=== PATIENT | male | born 1965 | race Caucasian/White ===

== ENCOUNTER 2021-04-27 17:14 | Inpatient (IN) | payer OTHER ==
[~2021-04-27] VITALS: Ht 172.7 cm; Wt 103.0 kg
--- NOTE | 2021-04-27 17:28 | NUR ---
PT BIB PD FOR MEDICAL CLEARANCE PRIOR TO BOOKING. PT PRESENTS W/ R UPPER THIGH ABSCESS FROM HEROIN USE. 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 DENIES ANY OTHER COMPLAINT FLOUR BLENDER. AWAITING MD MILLS.
--- NOTE | 2021-04-27 18:34 | NUR ---
JUAN DANIEL SERRANO AT BEDSIDE FOR EVAL.
[2021-04-27] MEDS ORDERED: LIDOCAINE MPF 1%-EPI 1:200,000 30 ML VIAL IJ ONE (18:51)
--- NOTE | 2021-04-27 18:53 | NUR ---
LEAVE SPECIALIST AT BEDSIDE FOR BLOOD DRAW.
[2021-04-27] MEDS ORDERED: CLINDAMYCIN 600 MG in IV D5W 100 ML IV ONE (19:00)
[2021-04-27] MEDS ORDERED: VANCOMYCIN 1 GM in IV D5W 250 ML IV ONE (19:00)
[2021-04-27] MEDS ORDERED: ACETAMINOPHEN ES 500 MG TABLET PO ONE (19:00)
[2021-04-27 19:03] LABS: BASOPHILS # (AUTO) 0.1 K/uL (0.0-0.2); BASOPHILS % (AUTO) 0.5 % (0.0-2.0); HEMATOCRIT 45 % (39-51); HEMOGLOBIN 14.6 g/dL (13.5-17.5); LYMPHOCYTES # (AUTO) 0.9 K/uL (0.8-4.8); LYMPHOCYTES % (AUTO) 5.3 % (20.0-44.0); MEAN CORPUSCULAR HGB CONC 33 g/dl (31.0-36.0); MEAN CORPUSCULAR VOLUME 88 fL (80-96); MONOCYTES # (AUTO) 1.6 K/uL (0.1-1.30); MONOCYTES % (AUTO) 9.9 % (2.0-12.0); NEUTROPHILS # (AUTO) 13.5 K/uL (1.8-8.9); NEUTROPHILS % (AUTO) 83.3 % (43.0-81.0); PLATELET COUNT (AUTO) 365 K/uL (150-450); RED BLOOD CELL COUNT(AUTO) 5.08 MIL/uL (4.5-6.0); WHITE BLOOD COUNT (AUTO) 16.2 K/uL (4.3-11.0)
[2021-04-27 19:06] LABS: CALCIUM, SERUM 8.7 mg/dL (8.5-10.1); CREATININE 1.2 mg/dL (0.6-1.3); POTASSIUM 4.1 mmol/L (3.5-5.1)
--- NOTE | 2021-04-27 19:10 | NUR ---
REPORT RECEIVED FROM MARIA ESTHER VILLA, PATIENT IN BED, MD AT BEDSIDE FOR INCISION AND DRAINAGE. WILL CONT TO MONITOR
[2021-04-27 19:11] LABS: ALBUMIN 2.3 g/dL (3.4-5.0); BILIRUBIN,DIRECT 0.2 mg/dL (0.0-0.2); BILIRUBIN,TOTAL 0.4 mg/dL (0.2-1.0); TOTAL PROTEIN, SERUM 7.5 g/dL (6.4-8.2)
--- NOTE | 2021-04-27 19:15 | NUR ---
JUAN DANIEL SERRANO AT BACK AT BEDSIDE FOR INCISION AND DRAINAGE.
--- NOTE | 2021-04-27 19:16 | NUR ---
ADAMID SWABBED, SENT TO LAB.
[2021-04-27] MEDS ORDERED: ACETAMINOPHEN ES 500 MG TABLET ONE (19:25)
--- NOTE | 2021-04-27 19:26 | NUR ---
REPORT GIVEN TO HEARING AID SPECIALIST NURSE ROXANE VILLA FOR ARIELLA.
--- NOTE | 2021-04-27 19:52 | NUR ---
[facility] CALLED LIFTS AND CRANES INSPECTOR PAGED.
[2021-04-27] MEDS ORDERED: IV NS 0.9% 1,000 ML BAG IV ONE (20:00)
--- NOTE | 2021-04-27 20:17 | NUR ---
HOSPITALIST SPEAKING WITH PROVIDER.
--- NOTE | 2021-04-27 22:28 | NUR ---
MS BED : 110
[2021-04-27] MEDS ORDERED: ACETAMINOPHEN 325 MG TABLET PO PRN (22:30)
[2021-04-27] MEDS ORDERED: MAG HYDROX/AL HYDROX/SIMETH 30 ML UDC PO PRN (22:30)
[2021-04-27] MEDS ORDERED: MAGNESIUM HYDROXIDE 30 ML UDC PO PRN (22:30)
--- NOTE | 2021-04-27 22:38 | NUR ---
CALLED FOR PCR SWAB
--- NOTE | 2021-04-27 23:16 | NUR ---
REPORT GIVEN ALLEN NUÑEZ FOR ARIELLA.
--- NOTE | 2021-04-27 23:28 | NUR ---
PT WAS TRANSFERRED TO 110
[2021-04-27 23:35] VITALS: BP 112/55
[2021-04-28] MEDS: ENOXAPARIN SODIUM 40 MG/0.4 ML DISP.SYRIN SQ SCH ×2 (00:10→22:10)
--- NOTE | 2021-04-28 01:04 | NUR ---
NGT REINSERTED TO LEFT NARE 16 ZIMBABWEAN AT 60 CM. PLACEMENT CONFIRMED WITH AUSCULTATION. NO GASTRIC CONTENTS CAME OUT. CXR ORDERED TO CONFIRM PLACEMENT. Addendum: 04/28/21 at 0107 by SAVANNAH ZENG RN NOTE ENTERED ON WRONG PATIENT
[2021-04-28 04:00] VITALS: BP 138/76
[2021-04-28] MEDS: ONDANSETRON HCL/PF 4 MG/2 ML VIAL IVP PRN ×3 (06:45→19:41)
[2021-04-28] MEDS: MORPHINE SULFATE INJ 2 MG/ML DISP.SYRIN IV PRN ×3 (06:46→17:00)
--- NOTE | 2021-04-28 07:17 | NUR ---
RN OPENING NOTE RECEIVED PATIENT RESTING IN BED. PATIENT IS A/O X3. PATIENT IS BREATHING EVENLY AND NONLABORED ON ROOM AIR. NO SIGNS OF DISTRESS NOTED. PATIENT DOES NOT COMPLAIN OF PAIN AT THIS TIME. PATIENT HAS IV ACCESS ON LAC # 20 GAUGE. PATIENT HAS WOUND DRESSING IN PLACE ON RIGHT THIGH. POLICE AT BEDSIDE. SAFETY MEASURES ARE IN PLACE, BED LOW LOCKED CALL LIGHT WITHIN REACH. WILL CONTINUE TO MONITOR
[2021-04-28] MEDS: VANCOMYCIN 1.5 GM in IV D5W 500 ML IV SCH (07:37)
[2021-04-28] MEDS: PANTOPRAZOLE 40 MG TABLET.DR PO SCH (07:37)
--- NOTE | 2021-04-28 08:38 | NUR ---
WOUND CARE CONSULT: REVIEWED CHART, NURSING DOCUMENTATION AND PHOTO WHICH INDICATES ABSCESS STATUS POST INCISION AND DRAINAGE TO RT THIGH, PRESENT ON ADMISSION. RECOMMENDATIONS MADE FOR WOUND CARE AND SKIN PROTECTION. DISCUSSED WITH NURSING STAFF. [employer] AT BEDSIDE. MD IN AGREEMENT WITH PLAN OF CARE.
--- NOTE | 2021-04-28 08:56 | NUR ---
RN NOTE PATIENT COMPLAINED OF WITHDRAW SYMPTOMS. NOTIFIED . ORDERED 1MG OF ATIVAN Q6HRS PRN IVP TRB. WILL CONTINUE TO MONITOR
[2021-04-28] MEDS ORDERED: LORAZEPAM INJ 2 MG/ML VIAL IV PRN (09:00)
--- NOTE | 2021-04-28 09:57 | NUR ---
RN NOTE RECEIVED CLARIFICATION FOR CT OF LOWER EXTREMITIES WITH CONTRAST PER TRB
--- NOTE | 2021-04-28 10:37 | NUR ---
RN NOTE PATIENT COMPLAINED OF FEELING SEVERE LOWER BACK PAIN AND NAUSEA. PATIENT SHOWS SIGNS OF RESTLESSNESS. VITALS TAKEN, ALL WNL. PRN PAIN MEDICATION AND NAUSEA MEDICATION GIVEN. WILL CONTINUE TO MONITOR
[2021-04-28] MEDS ORDERED: IV NS 0.9% 250 ML IV ONE (11:16)
[2021-04-28] MEDS ORDERED: IOHEXOL-300 100 ML VIAL IV ONE (11:16)
[2021-04-28] MEDS ORDERED: CT SWABBABLE VALVE TRANS SET 1 EA INFUS.SET MC ONE (11:16)
[2021-04-28 13:04] VITALS: BP 144/78
[2021-04-28 15:09] LABS: BASOPHILS % (AUTO) 0.3 % (0.0-2.0); EOSINOPHILS % (AUTO) 0.3 % (0.0-6.0); HEMATOCRIT 47 % (39-51); LYMPHOCYTES # (AUTO) 0.6 K/uL (0.8-4.8); LYMPHOCYTES % (AUTO) 4.6 % (20.0-44.0); MEAN CORPUSCULAR HGB CONC 32 g/dl (31.0-36.0); MEAN CORPUSCULAR VOLUME 90 fL (80-96); MONOCYTES # (AUTO) 0.9 K/uL (0.1-1.30); NEUTROPHILS # (AUTO) 11.5 K/uL (1.8-8.9); NEUTROPHILS % (AUTO) 87.8 % (43.0-81.0); PLATELET COUNT (AUTO) 305 K/uL (150-450); RED BLOOD CELL COUNT(AUTO) 5.18 MIL/uL (4.5-6.0); WHITE BLOOD COUNT (AUTO) 13.1 K/uL (4.3-11.0)
[2021-04-28 16:00] LABS: CALCIUM, SERUM 8.7 mg/dL (8.5-10.1); CREATININE 1.3 mg/dL (0.6-1.3); MAGNESIUM 1.9 mg/dL (1.8-2.4); POTASSIUM 4.2 mmol/L (3.5-5.1)
--- NOTE | 2021-04-28 17:00 | NUR ---
RN NOTE PATIENT COMPLAINED OF SEVERE PAIN 06/24. ASKED FOR PRN PAIN MEDICATION VITALS STABLE WILL GIVE MEDICATION ORDERED.
--- NOTE | 2021-04-28 18:20 | NUR ---
RN CLOSING NOTE PATIENT RESTING IN BED. PATIENT IS A/O X3. PATIENT IS BREATHING EVENLY AND NONLABORED ON ROOM AIR. NO SIGNS OF DISTRESS NOTED. PATIENT DOES NOT COMPLAIN OF PAIN AT THIS TIME. PATIENT HAS IV ACCESS ON LAC # 20 GAUGE. PATIENT HAS WOUND DRESSING IN PLACE ON RIGHT THIGH. WOUND DRESSING CHANGE PERFORMED DURING SHIFT. ALL MEDICATION GIVEN ORDERED. POLICE AT BEDSIDE. SAFETY MEASURES ARE IN PLACE, BED LOW LOCKED CALL LIGHT WITHIN REACH. WILL ENDORSE TO ONCOMING SHIFT
--- NOTE | 2021-04-28 19:46 | NUR ---
MS VILLA Notes Patient was last seen sleeping in bed, Patient's alert and oriented x3. Patient's on room air with no respiratory distress noted. Patient has a saline lock on his left AC G#20 which is intact, patent, and flushing well. Patient's in no acute distress at this time. Safety measures in place: Bed locked, side rails up x2, and call light within reach. Will continue to monitor the patient. Addendum: 04/29/21 at 0654 by ADE ALEGRE RN MS VILLA Opening Notes
[2021-04-28 21:00] VITALS: BP 153/84
[2021-04-29] MEDS: VANCOMYCIN 1.5 GM in IV D5W 500 ML IV SCH ×2 (01:52→21:00)
[2021-04-29] MEDS: MORPHINE SULFATE INJ 2 MG/ML DISP.SYRIN IV PRN ×4 (03:43→20:31)
--- NOTE | 2021-04-29 03:44 | NUR ---
MS RN Notes Patient c/o 7/10 pain in his back. Patient was given 1 mg of morphine intravenously. Will continue to monitor the patient.
[2021-04-29 05:37] VITALS: BP 98/68
[2021-04-29 06:47] LABS: BASOPHILS % (AUTO) 0.4 % (0.0-2.0); EOSINOPHILS % (AUTO) 0.4 % (0.0-6.0); HEMATOCRIT 51 % (39-51); HEMOGLOBIN 16.8 g/dL (13.5-17.5); LYMPHOCYTES % (AUTO) 8.8 % (20.0-44.0); MEAN CORPUSCULAR HGB CONC 33 g/dl (31.0-36.0); MEAN CORPUSCULAR VOLUME 88 fL (80-96); MONOCYTES # (AUTO) 1.3 K/uL (0.1-1.30); MONOCYTES % (AUTO) 11.8 % (2.0-12.0); NEUTROPHILS # (AUTO) 8.8 K/uL (1.8-8.9); NEUTROPHILS % (AUTO) 78.6 % (43.0-81.0); PLATELET COUNT (AUTO) 403 K/uL (150-450); RED BLOOD CELL COUNT(AUTO) 5.73 MIL/uL (4.5-6.0); WHITE BLOOD COUNT (AUTO) 11.2 K/uL (4.3-11.0)
--- NOTE | 2021-04-29 06:54 | NUR ---
MS RN Opening Notes Patient was last seen sleeping in bed. Patient's alert and oriented x3. Patient's on room air with no respiratory distress noted. Patient has a saline lock on his left AC G#20 which is intact, patent, and flushing well. Patient's in no acute distress at this time. Safety measures in place: Bed locked, side rails up x2, and call light within reach. Will endorse care to the day shift nurse.
--- NOTE | 2021-04-29 07:15 | NUR ---
RN NOTES PATIENT IN BED RESTING, EYES CLOSED, ABLE TO BE AWAKENED. A/O X4, ABLE TO MAKE NEEDS KNOWN. BREATHING EVEN AND UNLABORED ON ROOM AIR. IV LINE ON LAC #20 INTACT AND PATENT. PATIENT IN CUSTODY, 2 OFFICERS CURRENTLY AT BEDSIDE. SAFETY MEASURES IN PLACE. WILL CONTINUE TO MONITOR.
[2021-04-29 07:25] LABS: CALCIUM, SERUM 8.9 mg/dL (8.5-10.1); CREATININE 1.1 mg/dL (0.6-1.3); MAGNESIUM 2.2 mg/dL (1.8-2.4); PHOSPHORUS 3.4 mg/dL (2.5-4.9); POTASSIUM 4.3 mmol/L (3.5-5.1)
[2021-04-29] MEDS: PANTOPRAZOLE 40 MG TABLET.DR PO SCH (07:48)
--- NOTE | 2021-04-29 12:17 | NUR ---
RN NOTES PATIENT REQUESTED FOR PAIN MEDICATION FOR BACK PAIN RATED 10/10; MORPHINE 2MG IVP ADMINISTERED INDICATED. RESTING IN BED AT THIS TIME.
[2021-04-29 13:00] VITALS: BP 138/79
--- NOTE | 2021-04-29 14:50 | NUR ---
"Social Service consult: Social service consult requested for substance use including heroin. Patient is a 55-year-old, male. SW met with patient at his bedside in the med-surg unit. Patient was alert and oriented x4. Patient was resting. [employer] officers were at the bedside. Per chart, pt was brought in by [employer] for medical clearance prior to booking. Patient has a history of heroin use. Patient stated that he is currently homeless and will be D/C with [employer]. Patient stated that he has been living in his car for the last 7 months. Patient provided SW with contact information for his brother, Gallo, . SW asked the patient about his source of income and patient reported SANYA. Patient stated that he has a history of substance use which includes daily heroin, methamphetamine and alcohol use. Patient reported that he has been receiving medication-assisted treatment (Methadone) from [facility] [[address] [place] [address]; ] for his heroin use. Patient denied history of mental illness. Patient denied suicidal and homicidal ideation. Patient presented in the contemplation stage of change for his heroin use. Patient was receptive to receiving additional MAT resources. Patient's affect was reactive and his mood was euthymic. SW offered the patient MAT clinic referrals, homeless, and additional substance use resources. Patient accepted the resources and thanked SW. Patient signed the homeless waiver and SW filed waiver in the patient's chart. Patient will be discharged with [employer]. PLAN: Patient will be discharged with [employer]. No further SS intervention at this time, however, SW will remain available as needed. RESOURCES: [facility]: [address] [facility] [place] [address] [facility]: [address] [facility] [place] [address] [facility]: [id number] [place] [address] Year-round shelters: [facility] [address] [place] [address] ; [facility] [place] [address] [place] [address]; [place] [facility] [address] [facility] [address] SPA 4 | [facility] Provider: [facility] Address: [address], [address] # of Beds: 48 Population Served: [facility] Provider: [facility] Address: [address] [facility], [address] # of Beds: 73 Population Served: [facility] SPA 6 | [facility] Provider: [facility] Address: [address] [facility], [address] # of Beds: 63 Population Served: [facility] 3 | [facility] Provider: [facility] [place] Address: [address] [place] [address] # of Beds: 75 Population Served: [facility] 8 | [facility] Provider: [facility] [place] Address: [address] [place] [address] # of Beds: 80 Population Served: [facility] 1 | [facility] Provider: [facility] [place] Address: [address] [place] [address], [address] # of Beds: 85 Population Served: [facility] 2 | [facility] Provider: [facility] Address: Confidential (please call for location) # of Beds: 52 Population Served: [facility] 4 | [facility] Provider: [facility] Address: [address] [facility], [address] # of Beds: 49 Population Served: [facility] Provider: [facility] Address: [address] [facility], [address] # of Beds: 27 Population Served: [facility]: [facility]: [address] ; [facility] [address] [facility] ; [facility] [address] . Food Resources: [place] [facility] at [facility]- [address]. [place]; Meet Each Need with [facility] ([facility]) [address] [place]; [facility] [address] [facility]; [facility] 5[address] [facility]. Mental Health resources provided: [facility] [address] [place], [place] [address] ; [facility] [address] [facility] [address], [place], [place] [phone] ; [facility] [address] [facility] [place], [place] [id number] ; [facility] [address] [place], [place] [id number] Healthcare Clinics: [facility] [address] [facility], [address] [place]. [place] ; [facility] [address] [facility] [address] [place] [address]; [facility] [address] [facility]. [place] [address] [phone] Counseling--Outpatient [facility] [address] [facility], [place] [address] (Specializes in in-depth psychotherapy for emotional distress: anxiety, depression, interpersonal conflicts, life transitions, childhood abuse) PSYCHIATRIC OUTPATIENT SERVICES [facility] Partial Hospitalization and Intensive Outpatient Program (Managed Care and Hooper Only) [address] [facility]. [facility] [id number] [facility] Partial Hospitalization and Outpatient Program [address] [place] [address] [facility] Partial Hospitalization and Outpatient Program [address] [facility] [place], [place] [id number] [facility] [place] [facility] [address] [facility]. [address] [place], [place] [address] [facility] Partial Hospitalization and Outpatient Program [address] [place], [place] [phone] Substance use resources provided included: [facility] Substance Abuse Self-Helpline (SAS) ; [facility] [address] [place] [address] ; [facility] [address] [facility] [address] ; [facility] [address] [address] ; [facility] [address] [facility] [address] ; [facility] [address] [facility] [phone] ; [facility]; [facility] [place]; [place]; Alcoholics Anonymous -[facility]"
--- NOTE | 2021-04-29 18:56 | NUR ---
RN NOTES PATIENT SEEN EARLIER BY DR. PASTRANA. STILL IN CUSTODY W/ 2 POLICE OFFICERS AT BEDSIDE. PAIN MEDICATION PROVIDED INDICATED. SAFETY MEASURES MAINTAINED. WILL ENDORSE TO INTERNATIONAL ACCOUNT REPRESENTATIVE RN FOR ARIELLA.
--- NOTE | 2021-04-29 19:40 | NUR ---
RN Opening Notes Patient received sleeping in bed. Patient is alert and oriented x4. Patient's on room air with no respiratory distress noted. Patient has a saline lock on his left AC G#20 which is intact, patent, and flushing well. Safety measures in place: Bed locked, side rails up x2, and call light within reach. pt. is in custody with two [employer] police officers at bedside handcuffed on right arm. No acute distress noted at this time.
[2021-04-29 21:00] VITALS: BP 143/78
--- NOTE | 2021-04-29 21:30 | NUR ---
RN NOTE PHLEBOTOMY UNABLE TO BE DRAW BLOOD X2 DAYS. MIDLINE INSERTION RECOMMENDED BY JOHNNA UGALDE CELLULAR BIOLOGIST. PT. AWARE AND VERBALIZED UNDERSTANDING. VANCO TROUGH LEVEL TO BE DRAWN IN AM LABS. TEMPORARY OFFICE ASSISTANT CHANTE MOONEY.
--- NOTE | 2021-04-29 21:50 | NUR ---
(R) UA MIDLINE 18G INSERTED BY ANGELA VILLA. PATENT AND FLUSHING WELL. DRESSING CLEAN DRY AND INTACT.
[2021-04-29] MEDS: ONDANSETRON HCL/PF 4 MG/2 ML VIAL IVP PRN (22:47)
[2021-04-29] MEDS: ENOXAPARIN SODIUM 40 MG/0.4 ML DISP.SYRIN SQ SCH (22:51)
[2021-04-30 02:47] VITALS: BP 147/86
--- NOTE | 2021-04-30 03:05 | NUR ---
RN NOTE PT. ALERT AND ORIENTED X4, ON ROOM AIR AND ON RESP. DISTRESS NOTED. PT IS CURRENTLY IN CUSTODY WITH TWO [employer] OFFICERS AT BEDSIDE, HANDCUFFED ON LEFT ARM. (R) UA MIDLINE AND (L) AC PERIPHERAL IV BOTH PATENT, FLUSHING AND INTACT. WOUND CARE COMPLETED PER ORDERS TO RIGHT THIGH. CURRENTLY STABLE AND TRANSFERRED TO 3CLUTE BED 317. REPORT GIVEN TO BUDDY VILLA AT BEDSIDE. ALL PT. BELONGINGS ACCOUNTED FOR AND TRANSFERRED WITH PT.
[2021-04-30] MEDS: MORPHINE SULFATE INJ 2 MG/ML DISP.SYRIN IV PRN ×4 (05:11→22:19)
--- NOTE | 2021-04-30 05:11 | NUR ---
MS RN Notes Patient c/o 10/10 pain. Patient was given 2mg of Morphine IV. Will continue to monitor the patient.
[2021-04-30 07:08] LABS: BASOPHILS # (AUTO) 0.1 K/uL (0.0-0.2); BASOPHILS % (AUTO) 0.6 % (0.0-2.0); EOSINOPHILS % (AUTO) 0.4 % (0.0-6.0); HEMATOCRIT 49 % (39-51); HEMOGLOBIN 16.7 g/dL (13.5-17.5); LYMPHOCYTES # (AUTO) 0.9 K/uL (0.8-4.8); LYMPHOCYTES % (AUTO) 9.7 % (20.0-44.0); MEAN CORPUSCULAR HGB CONC 34 g/dl (31.0-36.0); MEAN CORPUSCULAR VOLUME 87 fL (80-96); MONOCYTES # (AUTO) 0.7 K/uL (0.1-1.30); MONOCYTES % (AUTO) 7.2 % (2.0-12.0); NEUTROPHILS # (AUTO) 7.6 K/uL (1.8-8.9); NEUTROPHILS % (AUTO) 82.1 % (43.0-81.0); PLATELET COUNT (AUTO) 419 K/uL (150-450); RED BLOOD CELL COUNT(AUTO) 5.66 MIL/uL (4.5-6.0); WHITE BLOOD COUNT (AUTO) 9.2 K/uL (4.3-11.0)
--- NOTE | 2021-04-30 07:10 | NUR ---
MS RN OPENING NOTE PATIENT ON BED ASLEEP BUT EASILY AROUSABLE. PATIENT IS ALERT AND ORIENTED X4. ON ROOM AIR WITH EVEN AND UNLABOERED BREATHING. COMFORT MEASURES PROVIDED. PATIENT WITH LEFT AC G20 PERIPHERAL LINE AND RIGHT UPPER ARM FR18 PICC LINE, BOTH ON SALINE LOCK, PATENT AND INTACT. PATIENT WITH 2 POLICE OFFICERS AT BEDSIDE WITH 1 WRIST HANDCUFFED TO THE SIDERAIL. PATIENT WITH DRESSING ON THE RIGHT ANTERIOR THIGH WITH DRESSING DRY AND INTACT. SAFETY MEASURES ARE IN PLACE, BED LOW LOCKED AND AT LOWEST POSITION, CALL LIGHT AND BEDSIDE TABLE WITHIN REACH AT ALL TIMES. WILL CONTINUE TO MONITOR PATIENT.
[2021-04-30 07:35] LABS: CALCIUM, SERUM 8.7 mg/dL (8.5-10.1); CREATININE 1.3 mg/dL (0.6-1.3); PHOSPHORUS 3.5 mg/dL (2.5-4.9); POTASSIUM 4.2 mmol/L (3.5-5.1)
[2021-04-30 08:00] VITALS: BP 172/96
[2021-04-30] MEDS: PANTOPRAZOLE 40 MG TABLET.DR PO SCH (09:20)
[2021-04-30] MEDS: VANCOMYCIN 1.5 GM in IV D5W 500 ML IV SCH ×2 (14:00→21:50)
--- NOTE | 2021-04-30 15:30 | NUR ---
MS RN NOTES PATIENT SEEN BY DR. MARTINEZ. WITH VERBAL INSTRUCTIONS. AWAITING ORDERS. WILL CONTINUE TO MONITOR PATIENT.
[2021-04-30 16:00] VITALS: BP 113/67
--- NOTE | 2021-04-30 18:55 | NUR ---
MS RN CLOSING NOTE PATIENT ON BED ASLEEP BUT EASILY AROUSABLE. PATIENT IS ALERT AND ORIENTED X4. ON ROOM AIR WITH EVEN AND UNLABORED BREATHING. COMFORT MEASURES PROVIDED. PATIENT WITH LEFT AC G20 PERIPHERAL LINE AND RIGHT UPPER ARM FR18 PICC LINE, BOTH ON SALINE LOCK, PATENT AND INTACT. PATIENT WITH 2 POLICE OFFICERS AT BEDSIDE WITH 1 WRIST HANDCUFFED TO THE SIDERAIL. PATIENT WITH DRESSING ON THE RIGHT ANTERIOR THIGH WITH DRESSING DRY AND INTACT. SAFETY MEASURES ARE IN PLACE, BED LOW LOCKED AND AT LOWEST POSITION, CALL LIGHT AND BEDSIDE TABLE WITHIN REACH AT ALL TIMES. PATIENT FOR NPO POST MIDNIGHT FOR POSSIBLE SURGERY TOMORROW. ENDORSED ACCORDINGLY. PATIENT ENDORSED TO NEXT SHIFT FOR CONTINUITY OF CARE.
[2021-04-30 20:00] VITALS: BP 126/72
--- NOTE | 2021-04-30 20:00 | NUR ---
MS RN OPENING NOTES Patient is A&O4, VSS. States that he would like to get some rest. Denies pain at this time. Patients face is slightly red and is sweating slightly pt reports he is feeling hot. -fan in room pointed at patient. No other signs of distress at this time. Patient educated about being NPO after midnight.
[2021-04-30] MEDS: ENOXAPARIN SODIUM 40 MG/0.4 ML DISP.SYRIN SQ SCH (21:52)
[2021-04-30] MEDS: ONDANSETRON HCL/PF 4 MG/2 ML VIAL IVP PRN (22:05)
[2021-05-01] MEDS: MORPHINE SULFATE INJ 2 MG/ML DISP.SYRIN IV PRN ×6 (03:47→23:26)
--- NOTE | 2021-05-01 06:28 | NUR ---
MS RN CLOSING NOTES Patient slept intermittently throughout night. Awake, alert and oriented x4. VSS. C/o lower back pain twice relieved temporarily by PRN Morphine. Been NPO since midnight. Consents for incision, drainage, and debridement of infected wound on RUQ completed. Wound care done to R thigh, site swollen and pink, pt states only mild pain to site that is tolerable. FRIDA midline intact and flushed. 2 officers at bedside.
--- NOTE | 2021-05-01 06:40 | NUR ---
Called lab about Dianamacey isabella. voice and data technician stated she will pickling machine operator blood from floor KATE but she is alone right now so needs to wait until another staff member can cover.
--- NOTE | 2021-05-01 07:15 | NUR ---
MS RN OPENING NOTE PATIENT ON BED ASLEEP BUT EASILY AROUSABLE. PATIENT IS ALERT AND ORIENTED X4. ON ROOM AIR WITH EVEN AND UNLABORED BREATHING. COMFORT MEASURES PROVIDED. PATIENT WITH LEFT AC G20 PERIPHERAL LINE AND RIGHT UPPER ARM FR18 PICC LINE, BOTH ON SALINE LOCK, PATENT AND INTACT. PATIENT WITH 2 POLICE OFFICERS AT BEDSIDE WITH 1 WRIST HANDCUFFED TO THE SIDERAIL. PATIENT WITH DRESSING ON THE RIGHT ANTERIOR THIGH WITH DRESSING DRY AND INTACT. PATIENT MAINTAINED ON NPO FOR PENDING PROCEDURE. SAFETY MEASURES ARE IN PLACE, BED LOW LOCKED AND AT LOWEST POSITION, CALL LIGHT AND BEDSIDE TABLE WITHIN REACH AT ALL TIMES. WILL CONTINUE TO MONITOR PATIENT.
[2021-05-01 07:20] LABS: BASOPHILS # (AUTO) 0.1 K/uL (0.0-0.2); BASOPHILS % (AUTO) 0.8 % (0.0-2.0); EOSINOPHILS % (AUTO) 0.6 % (0.0-6.0); HEMATOCRIT 51 % (39-51); HEMOGLOBIN 17.2 g/dL (13.5-17.5); LYMPHOCYTES # (AUTO) 1.4 K/uL (0.8-4.8); LYMPHOCYTES % (AUTO) 13.7 % (20.0-44.0); MEAN CORPUSCULAR HGB CONC 34 g/dl (31.0-36.0); MEAN CORPUSCULAR VOLUME 87 fL (80-96); MONOCYTES # (AUTO) 0.9 K/uL (0.1-1.30); MONOCYTES % (AUTO) 8.4 % (2.0-12.0); NEUTROPHILS # (AUTO) 7.9 K/uL (1.8-8.9); NEUTROPHILS % (AUTO) 76.5 % (43.0-81.0); PLATELET COUNT (AUTO) 556 K/uL (150-450); RED BLOOD CELL COUNT(AUTO) 5.88 MIL/uL (4.5-6.0); WHITE BLOOD COUNT (AUTO) 10.3 K/uL (4.3-11.0)
[2021-05-01 08:00] VITALS: BP 127/93
[2021-05-01 08:52] LABS: MAGNESIUM 2.1 mg/dL (1.8-2.4); PHOSPHORUS 3.8 mg/dL (2.5-4.9)
[2021-05-01 09:11] LABS: CREATININE 1.4 mg/dL (0.6-1.3)
[2021-05-01] MEDS: PANTOPRAZOLE 40 MG TABLET.DR PO SCH (09:11)
[2021-05-01 09:20] LABS: POTASSIUM 4.2 mmol/L (3.5-5.1)
[2021-05-01] MEDS: VANCOMYCIN 1.5 GM in IV D5W 500 ML IV SCH ×3 (09:56→22:15)
[2021-05-01] MEDS ORDERED: IV NS 0.9% 1,000 ML IV PRN (12:30)
--- NOTE | 2021-05-01 14:00 | NUR ---
MS RN NOTES PATIENT FOR PROCEDURE. CALLED OR AND NOTIFIED ALIDA VILLA. DR. MARTINEZ SAW PATIENT AND SAID PROCEDURE WILL BE PUSHED FOR TOMORROW. PATIENT RESUMED DIET AND WILL BE NPO POST MIDNIGHT FOR PROCEDURE. WILL CONTINUE TO MONITOR PATIENT.
[2021-05-01 16:00] VITALS: BP 128/86
--- NOTE | 2021-05-01 19:00 | NUR ---
MS RN OPENING NOTE PT AWAKE IN BED AT THIS TIME. AOX4, ABLE TO MAKE NEEDS KNOWN. NO SOB NOTED. NO C/O PAIN AT THIS TIME, NO S/O ANY ACUTE DISTRESS NOTED. RESPIRATIONS EVEN AND UNLABORED, STABLE ON RA RECEIVING. IV ACCESS FRIDA MIDLINE G18 LINE. SAFETY PRECAUTIONS IN PLACE AND MAINTAINED AT ALL TIMES. BED IN LOWEST LOCKED POSITION, HOB ELEVATED, SIDE RAILS UP X2, CALL LIGHT AND TABLE WITHIN REACH. FAMILY AT BEDSIDE. WILL CONTINUE TO MONITOR.
--- NOTE | 2021-05-01 19:00 | NUR ---
MS RN CLOSING NOTE PATIENT ON BED ASLEEP BUT EASILY AROUSABLE. PATIENT IS ALERT AND ORIENTED X4. ON ROOM AIR WITH EVEN AND UNLABORED BREATHING. COMFORT MEASURES PROVIDED. PATIENT WITH RIGHT UPPER ARM FR18 PICC LINE WITH NS RUNNING AT 75ML/HR. PATIENT WITH 2 POLICE OFFICERS AT BEDSIDE WITH 1 WRIST HANDCUFFED TO THE SIDERAIL. PATIENT WITH DRESSING ON THE RIGHT ANTERIOR THIGH WITH DRESSING DRY AND INTACT. SAFETY MEASURES ARE IN PLACE, BED LOW LOCKED AND AT LOWEST POSITION, CALL LIGHT AND BEDSIDE TABLE WITHIN REACH AT ALL TIMES. PATIENT FOR NPO POST MIDNIGHT FOR POSSIBLE SURGERY TOMORROW. ENDORSED ACCORDINGLY. PATIENT ENDORSED TO NEXT SHIFT FOR CONTINUITY OF CARE.
[2021-05-01 20:18] VITALS: BP 135/74
[2021-05-01] MEDS: ENOXAPARIN SODIUM 40 MG/0.4 ML DISP.SYRIN SQ SCH (23:20)
[2021-05-02] MEDS: ONDANSETRON HCL/PF 4 MG/2 ML VIAL IVP PRN (02:48)
[2021-05-02] MEDS ORDERED: MORPHINE SULFATE INJ 2 MG/ML DISP.SYRIN ONE (05:48)
[2021-05-02] MEDS: MORPHINE SULFATE INJ 2 MG/ML DISP.SYRIN IV PRN ×2 (05:55→12:58)
--- NOTE | 2021-05-02 06:00 | NUR ---
MS RN CLOSING NOTE PT IS SLEEPING IN BED , EASY TO AROUSE. A/OX4. PT IS STABLE ON RA, NO SOB NOTED, NO RESPIRATORY DISTRESS. PT IS AMB WITH BRP. IV ACCESS IS INTACT, PATENT AND FLUSHING WELL. ALL NEEDS, MEDICATIONS AND TREATMENT ADMINISTERED ANTICIPATED PER ORDER.PAIN MANAGEMENT ADMINISTERED PER PT REQUEST. BED IN LOWEST LOCKED POSITION, HOB ELEVATED, SIDE RAILS UPCX2. CALL LIGHT AND TABLE WITHIN REACH. WILL ENDORSE TO ONCOMING NURSE FOR ARIELLA.
[2021-05-02 06:41] LABS: BASOPHILS # (AUTO) 0.1 K/uL (0.0-0.2); BASOPHILS % (AUTO) 0.8 % (0.0-2.0); EOSINOPHILS % (AUTO) 1.2 % (0.0-6.0); HEMATOCRIT 53 % (39-51); HEMOGLOBIN 17.7 g/dL (13.5-17.5); LYMPHOCYTES # (AUTO) 1.3 K/uL (0.8-4.8); LYMPHOCYTES % (AUTO) 13.8 % (20.0-44.0); MEAN CORPUSCULAR HGB CONC 33 g/dl (31.0-36.0); MEAN CORPUSCULAR VOLUME 88 fL (80-96); MONOCYTES # (AUTO) 0.7 K/uL (0.1-1.30); MONOCYTES % (AUTO) 7.9 % (2.0-12.0); NEUTROPHILS # (AUTO) 7.1 K/uL (1.8-8.9); NEUTROPHILS % (AUTO) 76.3 % (43.0-81.0); PLATELET COUNT (AUTO) 531 K/uL (150-450); RED BLOOD CELL COUNT(AUTO) 6.05 MIL/uL (4.5-6.0); WHITE BLOOD COUNT (AUTO) 9.3 K/uL (4.3-11.0)
[2021-05-02] MEDS: VANCOMYCIN 1.5 GM in IV D5W 500 ML IV SCH (06:50)
[2021-05-02] MEDS ORDERED: FENTANYL PF 250MCG/5ML AMPUL ONE (07:02)
[2021-05-02] MEDS ORDERED: MIDAZOLAM HCL 2 MG/2ML VIAL ONE (07:03)
[2021-05-02] MEDS ORDERED: BUPIVACAINE MPF 0.5% W/EPI INJ 30 ML VIAL ONE (07:15)
[2021-05-02] MEDS ORDERED: LIDOCAINE 1% INJ 50 ML MDV IJ ONE (07:16)
[2021-05-02] MEDS: PANTOPRAZOLE 40 MG TABLET.DR PO SCH (07:45)
[2021-05-02 07:57] LABS: CALCIUM, SERUM 8.7 mg/dL (8.5-10.1); CREATININE 1.1 mg/dL (0.6-1.3); MAGNESIUM 2.1 mg/dL (1.8-2.4); PHOSPHORUS 3.5 mg/dL (2.5-4.9); POTASSIUM 4.3 mmol/L (3.5-5.1)
[2021-05-02 08:15] VITALS: BP 125/84
[2021-05-02] MEDS ORDERED: HYDROMORPHONE 1 MG/1 ML DISP.SYRIN ONE ×2 (09:48→10:09)
[2021-05-02] MEDS ORDERED: CEPH500T PO (14:48)
[2021-05-02] MEDS ORDERED: VANCOMYCIN 1.25 GM in IV D5W 250 ML IV SCH (15:00)
[2021-05-02 15:58] VITALS: BP 119/78
== END 2021-05-02 16:30 | DRG 579 ==
LOC: ER 17:21 → TRANSITION 22:04 → TELE-TD 22:33 → MEDSG1 22:37 → MED 04-30 02:36
PROVIDERS: ADMIT Nurse Practitioner Family; ATTEND Student in an Organized Health Care Education/Training Program
PROC: 05H533Z Insertion of Infusion Device into Right Subclavian Vein, Percutaneous Approach (ICD-10-PCS; principal; 2021-04-29)
PROC: B546ZZA Ultrasonography of Right Subclavian Vein, Guidance (ICD-10-PCS; 2021-04-29)
PROC: 0KDQ0ZZ Extraction of Right Upper Leg Muscle, Open Approach (ICD-10-PCS; 2021-05-02)
PROC: 0J9L0ZZ Drainage of Right Upper Leg Subcutaneous Tissue and Fascia, Open Approach (ICD-10-PCS; 2021-05-02)
DX: L03.115 Cellulitis of right lower limb (principal); N17.0 Acute kidney failure with tubular necrosis; E87.1 Hypo-osmolality and hyponatremia; E44.0 Moderate protein-calorie malnutrition; E87.6 Hypokalemia; Z20.822 Contact with and (suspected) exposure to COVID-19; Z87.891 Personal history of nicotine dependence; L02.415 Cutaneous abscess of right lower limb; Z59.0 Homelessness; E66.9 Obesity, unspecified; E88.09 Other disorders of plasma-protein metabolism, not elsewhere classified; D72.829 Elevated white blood cell count, unspecified; F11.188 Opioid abuse with other opioid-induced disorder; Z68.34 Body mass index [BMI] 34.0-34.9, adult
CPT/HCPCS: 36415; 73701-TC; 80048-TC; 80061-TC; 80076-TC; 80202-TC; 83605-TC; 83735-TC; 84100-TC; 85025-TC; 87040-TC; 87070-TC; 87081-TC; 97112-TC; 97116-TC; 97530-TC; A6253; A6403; A6407; C9803; G0378; J1100; J1170; J1650; J2060; J2250; J2270; J2370; J2405; J2704; J3010; J3370; J3490; J7030; J7040; J7050; J7060; Q9967; U0003